=== PATIENT | male | born 1985 | race Caucasian/White ===

== ENCOUNTER 2017-11-10 21:09 | Inpatient (IN) | payer OTHER ==
[~2017-11-10] VITALS: Ht 175.3 cm; Wt 120.0 kg
[~2017-11-10 21:09] MED LIST: CIPRO500 MG PO; FLAGYL500 MG PO; FLUTICASONE PRO16 GM BOTH NARES; LEVOTHYROXINE50 MCG PO; MOTRIN600 MG PO; PREDNISONE20 MG PO; PROAIR HFA8.5 GM IH; TYLENOL WITH C1 EACH PO; VENTOLIN HFA18 GM IH
[2017-11-10 21:38] LABS: HEMATOCRIT 34.1 % (38.0-50.0); HEMOGLOBIN 12.6 G/DL (12.5-16.6); MCH 29.7 PG (29.0-34.0); MCV 80.4 FL (86-99); PLATELET COUNT 213 K/uL (156-360); RBC DIS.WIDTH-CV 11.9 % (11.8-14.6); RBC DIS.WIDTH-SD 34.8 % (39-53); RED BLOOD COUNT 4.24 M/uL (4.00-5.50); WHITE BLOOD COUNT 5.9 K/uL (4.1-10.2)
[2017-11-10 21:46] LABS: CHLORIDE 109 mEq/L (99-109); POTASSIUM 4.2 mEq/L (3.7-5.4); SODIUM 138 mEq/L (136-147)
[2017-11-10 21:47] LABS: GLUCOSE 91 mg/dL (70-99)
[2017-11-10 21:51] LABS: CREATININE 0.8 mg/dL (0.6-1.3); GFR ESTIMATE (CALCULATED) > 59 mL/min/ (58.99-99999)
[2017-11-10 21:52] LABS: UREA NITROGEN (BUN) 15 mg/dL (9-23)
[2017-11-11 03:45] VITALS: BP 135/88
[2017-11-11 06:13] LABS: ALBUMIN 3.8 G/DL (3.2-4.8); ALKALINE PHOSPHATASE 38 IU/L (3-129); ALT (GPT) 35 IU/L (3-49); AST (GOT) 31 IU/L (2-34); DIRECT BILIRUBIN 0.1 mg/dL (0.0-0.3); TOTAL BILIRUBIN 0.8 MG/DL (0.0-1.0)
[2017-11-11 09:31] VITALS: BP 136/82
[2017-11-11 09:55] LABS: HIV-1/2 AB/AG COMBO Nonreactive
[2017-11-11 11:47] VITALS: BP 132/76
[2017-11-11 15:53] VITALS: BP 139/95
[2017-11-11 19:30] VITALS: BP 131/85
[2017-11-11 23:37] VITALS: BP 152/86
[2017-11-12 03:35] VITALS: BP 135/80
[2017-11-12 05:19] LABS: BASOPHIL (%) 0.8 % (0-1); EOSINOPHIL (%) 6.8 % (0-5); EOSINOPHIL COUNT 0.4 K/uL (0-0.3); HEMATOCRIT 32.4 % (38.0-50.0); IMMATURE GRANULOCYTE (%) 0.2 % (0.0-0.7); LYMPHOCYTE (%) 46.5 % (15-42); LYMPHOCYTE COUNT 2.4 K/uL (1.0-2.8); MCH 29.9 PG (29.0-34.0); MCV 80.8 FL (86-99); MONOCYTE (%) 9.1 % (3-12); MONOCYTE COUNT 0.5 K/uL (0-0.8); NEUTROPHIL (%) 36.6 % (45-76); NEUTROPHIL COUNT 1.9 K/uL (1.8-6.4); PLATELET COUNT 193 K/uL (156-360); RBC DIS.WIDTH-CV 11.9 % (11.8-14.6); RBC DIS.WIDTH-SD 34.7 % (39-53); RED BLOOD COUNT 4.01 M/uL (4.00-5.50); WHITE BLOOD COUNT 5.2 K/uL (4.1-10.2)
[2017-11-12 06:03] LABS: ALKALINE PHOSPHATASE 44 IU/L (3-129); ALT (GPT) 39 IU/L (3-49); AST (GOT) 33 IU/L (2-34); CHLORIDE 106 MEQ/L (99-109); CREATININE 0.8 MG/DL (0.6-1.3); DIRECT BILIRUBIN 0.2 mg/dL (0.0-0.3); GFR ESTIMATE (CALCULATED) > 59 mL/min/ (58.99-99999); GLUCOSE 105 mg/dL (70-99); POTASSIUM 4.3 MEQ/L (3.7-5.4); SODIUM 139 MEQ/L (136-147); TOTAL PROTEIN 6.3 G/DL (6.4-8.3); UREA NITROGEN (BUN) 14 mg/dL (9-23)
[2017-11-12 07:52] VITALS: BP 124/86
== END 2017-11-12 11:15 | disposition home or self-care (01) | DRG 644 ==
LOC: EME 21:09 → EDOF 11-11 01:00 → 3EAST 11-11 01:00 → ENRESERV 11-11 01:02 → 3EAST 11-11 03:10
PROVIDERS: Hospitalist
DX: D44.4 Neoplasm of uncertain behavior of craniopharyngeal duct (principal); G93.9 Disorder of brain, unspecified; R55 Syncope and collapse; W19.XXXA Unspecified fall, initial encounter; J45.909 Unspecified asthma, uncomplicated; E03.9 Hypothyroidism, unspecified; M87.9 Osteonecrosis, unspecified; Z68.39 Body mass index [BMI] 39.0-39.9, adult
CPT/HCPCS: 70450; 70553; 71046; 80048; 80076; 85025; 85027; 87389; 93005; 93306; 95819; 99202; 99281; 99285; J1650